=== PATIENT | female | born 1925 | race Caucasian/White ===

== ENCOUNTER 2017-04-03 11:05 | Emergency (ER) | payer MEDICARE, OTHER ==
[~2017-04-03] VITALS: Ht 157.5 cm; Wt 105.2 kg
[2017-04-03] MEDS ORDERED: ALLO15TA (11:20)
[2017-04-03] MEDS ORDERED: TYLE325T5 PO (11:20)
[2017-04-03] MEDS ORDERED: VITA50003 (11:20)
[2017-04-03] MEDS ORDERED: PROA1AER (11:20)
[2017-04-03] MEDS ORDERED: SPIR25TA2 (11:20)
[2017-04-03] MEDS ORDERED: POTA20TA PO (11:20)
[2017-04-03] MEDS ORDERED: OMEP40CA2 (11:20)
[2017-04-03] MEDS ORDERED: SIMV20TA2 (11:20)
[2017-04-03] MEDS ORDERED: TORS100T PO (11:20)
[2017-04-03] MEDS ORDERED: WARF-20 (11:20)
[2017-04-03] MEDS ORDERED: TRAM50TA2 PO (11:20)
[2017-04-03] MEDS ORDERED: ATEN50TA2 (11:20)
--- NOTE | 2017-04-03 14:07 | REP ---
BILATERAL LOWER EXTREMITY DUPLEX VEINS. HISTORY: Swelling. Right Lower Extremity: There are no filling defects in the deep venous system. The deep venous system is patent. IMPRESSION: There is no deep venous thrombosis. Left Lower Extremity: There are no filling defects in the deep venous system. The deep venous system is patent. IMPRESSION: There is no deep venous thrombosis. Signed by Patrick Russell MD 04/03/2017 02:09 P
[2017-04-03 14:35] VITALS: BP 142/80
== END 2017-04-03 14:46 | disposition home or self-care (01) ==
LOC: M ED 12:07
DX: I80.00 Phlebitis and thrombophlebitis of superficial vessels of unspecified lower extremity (principal); I89.0 Lymphedema, not elsewhere classified; I48.91 Unspecified atrial fibrillation; I50.9 Heart failure, unspecified; I10 Essential (primary) hypertension; M19.90 Unspecified osteoarthritis, unspecified site; Z87.440 Personal history of urinary (tract) infections; Z88.1 Allergy status to other antibiotic agents; Z88.5 Allergy status to narcotic agent; Z88.8 Allergy status to other drugs, medicaments and biological substances

== ENCOUNTER 2017-04-28 12:10 | Emergency (ER) | payer MEDICARE, OTHER ==
[~2017-04-28] VITALS: Ht 157.5 cm; Wt 105.7 kg
[~2017-04-28 12:10] MED LIST: ALLO15TA; ATEN50TA2; OMEP40CA2; POTA20TA PO; PROA1AER; SIMV20TA2; SPIR25TA2; TORS100T PO; TRAM50TA2 PO; TYLE325T5 PO; VITA50003; WARF-20
[2017-04-28 12:12] VITALS: BP 123/78
[2017-04-28] MEDS ORDERED: NORC1TAB4 PO (12:32)
[2017-04-28] MEDS ORDERED: DOXY100C (12:32)
--- NOTE | 2017-04-28 13:18 | REP ---
Clinical: Trauma. Fall. Comparison: 01/02/2010 . Findings: Age-related atrophy and microvascular ischemic changes are appreciated. The ventricles and sulci are symmetric. Rooney-white differentiation is maintained. There is no evidence for acute intracranial hemorrhage, mass/mass effect, pathology or infarction. No extra-axial fluid collection. Calvarium is intact. Paranasal sinuses and mastoid air cells are relatively clear with 2 cm chronic mucocele noted in the left maxillary sinus. Impression: Age related atrophy and microvascular ischemic changes. No acute intracranial hemorrhage, infarction, or mass/mass effect. Signed by Boogie Paul MD 04/28/2017 01:10 P
--- NOTE | 2017-04-28 13:49 | REP ---
Clinical: Trauma. Fall. Technique: AP angled and lateral views of the sacrum. Findings: Advanced osteopenia and degenerative changes are appreciated and limit evaluation. No obvious acute sacral or coccygeal fracture appreciated. Impression: No obvious acute fracture or or dislocation/subluxation. Signed by Boogie Paul MD 04/28/2017 01:40 P
--- NOTE | 2017-04-28 14:01 | REP ---
Clinical: Chest pain. Comparison: 12/19/2016. Findings: Marked cardiomegaly is again appreciated and may be more pronounced than prior examination. No obvious consolidation, effusion, or pneumothorax. Skeletal structures stable. Impression: Marked cardiomegaly. Signed by Boogie Paul MD 04/28/2017 01:53 P
[2017-04-28 14:09] LABS: BASO % 0.7 % (0.0-1.0); EOS % 0.7 % (0.0-3.0); LARGE UNSTAINED CELL # 0.1 K/mm3 (0.0-0.4); LARGE UNSTAINED CELL % 2.7 % (0.0-4.0); LYMPH # 0.6 K/mm3 (1.5-4.5); LYMPH % 9.6 % (24.0-44.0); MEAN CORPUSCULAR HGB CONC 31.2 g/dl (32.0-36.5); MEAN CORPUSCULAR VOLUME 102.5 fl (80.0-96.0); MONO # 0.6 K/mm3 (0.0-0.8); MONO % 12.1 % (0.0-5.0); NEUTROPHILS # 3.5 K/mm3 (1.8-7.7); NEUTROPHILS % 74.2 % (36.0-66.0); PLATELET COUNT, AUTOMATED 196 k/mm3 (150-450); RED CELL DISTRIBUTION WIDTH 16.9 % (11.5-14.5); WHITE BLOOD COUNT 4.8 K/mm3 (4.0-10.0)
[2017-04-28 14:33] LABS: ERYTHROCYTE SEDIMENTATION RATE 26 mm/hr (0-42)
[2017-04-28] MEDS ORDERED: PRED20TA PO (14:48)
== END 2017-04-28 15:11 | disposition home or self-care (01) ==
LOC: M ED 13:07
DX: S09.90XA Unspecified injury of head, initial encounter (principal); L52 Erythema nodosum; W19.XXXA Unspecified fall, initial encounter; Y92.9 Unspecified place or not applicable; Y93.9 Activity, unspecified; Y99.9 Unspecified external cause status; I10 Essential (primary) hypertension; M19.90 Unspecified osteoarthritis, unspecified site; I51.7 Cardiomegaly; Z79.899 Other long term (current) drug therapy; Z79.02 Long term (current) use of antithrombotics/antiplatelets; Z88.5 Allergy status to narcotic agent; Z88.8 Allergy status to other drugs, medicaments and biological substances; Z88.1 Allergy status to other antibiotic agents; Z88.4 Allergy status to anesthetic agent

== ENCOUNTER 2017-05-10 13:49 | Emergency (ER) | payer MEDICARE, OTHER ==
[~2017-05-10] VITALS: Ht 157.5 cm; Wt 108.0 kg
[~2017-05-10 13:49] MED LIST changes: +DOXY100C; +NORC1TAB4 PO; +PRED20TA PO
[2017-05-10 13:50] VITALS: BP 136/69
[2017-05-10] MEDS ORDERED: TRIA1OI TOP (14:01)
[2017-05-10] MEDS ORDERED: NORCO, ANEXSIA 5/325MG TABLET (HYDROcodone/ACETAMINOPHEN) PO ONE (14:30)
--- NOTE | 2017-05-10 14:34 | ED PDOC ---
Post-Departure Follow-Up PT AND FAMILY STATE THEY HAVE BEEN SEEN MULTIPLE TIMES FOR HER CURRENT SYMPTOMS SINCE JANUARY 2017. THEY STATE PAINFUL LESIONS OVER PT'S UPPER THIGHS. THEY HAVE BEEN SEEN IN THE ER AND BY PCP AND HAD A BIOPSY OF ONE OF THESE AREAS BY A BOBBIN DUMPER YESTERDAY AND PRESENT TO THE ED TODAY WITH A CHIEF COMPLAINT OF PAIN OVER THESE AREAS AND ARE FRUSTRATED THEY DO NOT KNOW WHAT THE CAUSE IS. ADVISED WE CAN DRAW LABWORK TODAY BUT THE DIAGNOSIS WILL MOST LIKELY HAVE TO COME FROM THE BOBBIN DUMPER WHEN THE PATHOLOGY REPORT RESULTS FROM THE BIOPSY. PT WAS ON A COURSE OF PREDNISONE AND WAS FEELING IMPROVED. STATES SHE IS NOW OFF OF THEM AND "IS FEELING WEAKER." STATES THE PREDNISONE INCREASED HER INR AND THEY HAVE HAD TO CHANGE THE DOSING OF HER COUMADIN AT HOME OVER THE PAST WEEK. PT DENIES ANY FEVER WITH THESE AREAS ON HER LEGS. STATES PAINFUL LESIONS THAT WILL COME AND GO, SOME HAVE RESOLVED, BUT THEN NEW ONES APPEAR IN DIFFERENT AREAS. COLLEEN WILBURN PA-C May 10, 2017 14:33
[2017-05-10 14:49] LABS: BASO % 0.3 % (0.0-1.0); EOS # 0.1 K/mm3 (0.0-0.50); EOS % 0.8 % (0.0-3.0); LARGE UNSTAINED CELL # 0.1 K/mm3 (0.0-0.4); LARGE UNSTAINED CELL % 1.2 % (0.0-4.0); LYMPH # 0.7 K/mm3 (1.5-4.5); LYMPH % 7.8 % (24.0-44.0); MEAN CORPUSCULAR HEMOGLOBIN 32.4 pg (27.0-33.0); MEAN CORPUSCULAR HGB CONC 31.8 g/dl (32.0-36.5); MONO # 0.8 K/mm3 (0.0-0.8); MONO % 10.4 % (0.0-5.0); NEUTROPHILS # 6.1 K/mm3 (1.8-7.7); NEUTROPHILS % 79.6 % (36.0-66.0); PLATELET COUNT, AUTOMATED 127 k/mm3 (150-450); WHITE BLOOD COUNT 7.7 K/mm3 (4.0-10.0)
[2017-05-10 14:50] LABS: INR 2.2
[2017-05-10 15:11] LABS: CALCIUM LEVEL 9.3 MG/DL (8.8-10.2); CREATININE FOR GFR 1.9 MG/DL (0.55-1.02); GLOMERULAR FILTRATION RATE 26.5 (>32); POTASSIUM SERUM 4.4 MEQ/L (3.5-5.1)
[2017-05-10 15:15] LABS: ERYTHROCYTE SEDIMENTATION RATE 14 mm/hr (0-42)
[2017-05-10] MEDS ORDERED: NORCOTAB PO (15:25)
[2017-05-10] MEDS ORDERED: ACET30TAB PO (16:38)
== END 2017-05-10 16:57 | disposition home or self-care (01) ==
LOC: M ED 14:08
DX: R22.43 Localized swelling, mass and lump, lower limb, bilateral (principal); M79.604 Pain in right leg; M79.605 Pain in left leg; I11.0 Hypertensive heart disease with heart failure; K57.90 Diverticulosis of intestine, part unspecified, without perforation or abscess without bleeding; Z90.79 Acquired absence of other genital organ(s); Z79.01 Long term (current) use of anticoagulants; Z79.899 Other long term (current) drug therapy; Z88.1 Allergy status to other antibiotic agents; Z88.5 Allergy status to narcotic agent; Z88.8 Allergy status to other drugs, medicaments and biological substances

== ENCOUNTER → 2017-06-02 | Outpatient (CLI) | payer MEDICARE, OTHER ==
[~2017-06-02] MED LIST changes: +ACET30TAB PO; +HYDR-3713 PO; +NORCOTAB PO; -PROA1AER; +PROAAER10; +TRIA1OI TOP; +VITA1CAP40; -VITA50003
[2017-06-02 21:38] LABS: CREATININE FOR GFR 1.71 MG/DL (0.55-1.02); GLOMERULAR FILTRATION RATE 29.9 (>32); POTASSIUM SERUM 4.4 MEQ/L (3.5-5.1)
== END ==
LOC: M SMT 12:12
PROVIDERS: ATTEND Internal Medicine
DX: N18.9 Chronic kidney disease, unspecified (principal)

== ENCOUNTER → 2017-06-20 | Outpatient (CLI) | payer MEDICARE, OTHER ==
[2017-06-20 14:32] LABS: INR 3.6
== END ==
LOC: M LAB 13:36
PROVIDERS: ATTEND Internal Medicine
DX: Z51.81 Encounter for therapeutic drug level monitoring (principal); Z79.01 Long term (current) use of anticoagulants; I48.2 Chronic atrial fibrillation

== ENCOUNTER → 2017-06-20 | Outpatient (CLI) | payer MEDICARE, OTHER ==
[2017-06-25 00:09] LABS: Chitobioside Carbohydrat (ACCA 10 units (0-90); Laminaribioside Carbohyd (ALCA 4 units (0-60); Mannobioside Carbohydrat (AMCA 20 units (0-100); Saccharomyces cerevisiae IgG A 4 units (0-50)
== END ==
LOC: M SMT 11:05
PROVIDERS: ATTEND Surgery
DX: L97.122 Non-pressure chronic ulcer of left thigh with fat layer exposed (principal); Z51.81 Encounter for therapeutic drug level monitoring; Z79.01 Long term (current) use of anticoagulants; I48.2 Chronic atrial fibrillation

== ENCOUNTER 2017-06-23 09:08 | Inpatient (IN) | payer MEDICARE, OTHER ==
[~2017-06-23] VITALS: Ht 154.9 cm; Wt 96.5 kg
[~2017-06-23 09:08] MED LIST changes: -HYDR-3713 PO
[2017-06-23] MEDS ORDERED: HYDR-3713 PO (09:36)
[2017-06-23] MEDS ORDERED: PRED20TA PO (09:36)
[2017-06-23 10:14] LABS: ADD MANUAL DIFFER YES; MEAN CORPUSCULAR HEMOGLOBIN 32.9 pg (27.0-33.0); MEAN CORPUSCULAR HGB CONC 33.1 g/dl (32.0-36.5); MEAN CORPUSCULAR VOLUME 99.2 fl (80.0-96.0); PLATELET COUNT, AUTOMATED 199 k/mm3 (150-450); RED CELL DISTRIBUTION WIDTH 17.3 % (11.5-14.5); WHITE BLOOD COUNT 16.4 K/mm3 (4.0-10.0)
[2017-06-23 10:22] LABS: INR 3.24
[2017-06-23 10:24] LABS: BANDS 20 % (< 11)
[2017-06-23 10:25] LABS: ANISOCYTOSIS 1+
[2017-06-23 10:32] LABS: OSMOLALITY SERUM 296 MOSM/KG (280-301)
--- NOTE | 2017-06-23 10:38 | REP ---
CT of the brain without IV contrast: Comparisons are 01/02/2010 and 04/28/2017. There is no hemorrhage. There is no edema, mass effect or midline shift. The ventricles and sulci are enlarged, unchanged, compatible with diffuse volume loss. There are lucencies in the subcortical white matter compatible with chronic microvascular ischemia, unchanged. There is a polyp/cyst in the left maxillary sinus, unchanged. Impression: No hemorrhage, acute infarct or mass. Chronic diffuse volume loss and chronic microvascular ischemia. There is a chronic polyp/cyst in the left maxillary sinus. Signed by Randy Lloyd MD 06/23/2017 10:29 A
[2017-06-23] MEDS ORDERED: NS 1,000 ML IV ONE ×3 (10:45→11:45)
[2017-06-23 10:48] LABS: ALKALINE PHOSPHATASE 164 U/L (45-117); ALT/SGPT 23 U/L (12-78); AST/SGOT 27 U/L (15-37); BILIRUBIN,DIRECT 1.8 MG/DL (0.0-0.2); BILIRUBIN,TOTAL 2.2 MG/DL (0.2-1.0); BLOOD UREA NITROGEN 70 MG/DL (7-18); CALCIUM LEVEL 8.7 MG/DL (8.8-10.2); CHLORIDE LEVEL 97 MEQ/L (98-107); CREATININE FOR GFR 2.77 MG/DL (0.55-1.02); GLUCOSE, FASTING 89 MG/DL (83-110); POTASSIUM SERUM 3.7 MEQ/L (3.5-5.1); SODIUM LEVEL 140 MEQ/L (136-145); TOTAL PROTEIN 5.3 GM/DL (6.4-8.2)
[2017-06-23] MEDS ORDERED: CEFEPIME HCL 2 GM in D5W MINI-BAG PLUS 50 ML IV ONE (11:00)
--- NOTE | 2017-06-23 11:05 | REP ---
Chest, single AP view, the patient semi upright: Comparison is 04/28/2017. There is marked cardiomegaly, unchanged. Lung tinoco are clear. The ismael, mediastinum, and bony thorax are unremarkable. Impression: No acute cardiopulmonary findings. Marked cardiomegaly, unchanged. Signed by Randy Lloyd MD 06/23/2017 10:57 A
[2017-06-23 11:45] VITALS: BP 88/77
[2017-06-23] MEDS ORDERED: HYDROCORTISONE 100 MG/2 ML VIAL (J1720) IV ONE (12:15)
--- NOTE | 2017-06-23 12:30 | REP ---
CT of the chest without IV contrast: Comparison is the 07/28/2006. The cardiac size is enlarged. This is unchanged. The thoracic aorta is unremarkable. There is no mediastinal hematoma. There is no pericardial effusion. There are no focal infiltrates. No pleural effusions. There are no masses. There is no mediastinal adenopathy or mass. No axillary adenopathy or mass. The study is insensitive for hilar adenopathy in the absence of IV contrast. Impression: Chronic cardiomegaly. No pericardial effusion. No pleural fluid collection. No mediastinal hematoma. There is vascular calcified atheroma in the coronary arteries. Signed by Randy Lloyd MD 06/23/2017 12:21 P
--- NOTE | 2017-06-23 12:39 | REP ---
CT of the abdomen and pelvis without IV or bowel contrast: Comparison is 2010 Cardiac size is enlarged, unchanged. There is no pericardial effusion. The unenhanced hepatic parenchyma is unremarkable. The gallbladder lumen is opacified, likely milk of calcium, but is otherwise unremarkable. The pancreas and spleen are normal size and unremarkable. There is no hydronephrosis. The adrenals and kidneys are otherwise unremarkable. The abdominal aorta is unremarkable. There is no aneurysm or periaortic hematoma. There is no bowel distension or obstruction. There is no free fluid or ascites. Pelvis: There are occasional diverticula in the descending colon and sigmoid colon without diverticulitis. There is a Moreno catheter in the bladder. The bladder is collapsed. There is a hysterectomy. The vaginal cuff and adnexa are unremarkable. There is no free fluid, adenopathy or mass. The spinous processes of the second and third lumbar vertebra appear fused. There is advanced osteoarthritis in the facets at L3-4. There is advanced degenerative disc disease at T12-L1 and L3-4. Impression: No retroperitoneal or intraperitoneal hematoma or free fluid. No bowel distension. No abdominal aortic aneurysm. No pneumoperitoneum. Chronic and degenerative findings in the lumbar spine. Bilateral hip osteoarthritis. Cardiomegaly. Signed by Randy Lloyd MD 06/23/2017 12:30 P
[2017-06-23 12:47] LABS: ALBUMIN 2.2 GM/DL (3.2-5.2); ALBUMIN/GLOBULIN RATIO 0.71 (1.00-1.93); ANION GAP 19 MEQ/L (8-16); CARBON DIOXIDE LEVEL 24 MEQ/L (21-32)
[2017-06-23] MEDS: NS 1,000 ML IV SCH ×2 (13:03→19:19)
[2017-06-23] MEDS ORDERED: MORPHINE 2 MG/ML 1ML SYRINGE IV PRN (14:30)
[2017-06-23] MEDS ORDERED: LORazepam 2 MG/ML VIAL (J2060) IV PRN (14:30)
--- NOTE | 2017-06-23 14:55 | HPEPDOC ---
General Date of Admission Jun 23, 2017 at 14:30 Chief Complaint The patient is a 89-year-old female Presented to the ER via EMS after she was found to have weakness and confusion at home. 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 fib (on Coumadin), Severe arthritis and Gout who presented to the ER via EMS because of weakness and confusion at home. Patient is unable to provide any details to her history. Her and daughter are present to provide details of her history. Other history obtained from medical record. Patient was at home sleeping in bed. When she woke up, had noted that she was confused and when he tried to help her out of bed she was very weak and couldnt stand. At that point he called EMS. EMS found patient to be hypotensive. Upon arrival to the ER patient had a blood pressure in 140s; however quickly deteriorated to SBP of 40s. She received 3 liters fluid bolus and was onto the fourth. 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 Patient was partially lucid upon arrival in the ER and had indicated to Dr. Leggett that she wanted to remain TELERADIOLOGIST. Family is at the bedside, I have discussed with them in detail her case. They have decided to keep the patient TELERADIOLOGIST. Home Medications Unable to Obtain Active Prescriptions or Reported Meds Allergies Coded Allergies: Anesthetics, Amide (Verified Allergy, Intermediate, HIVES, DYSPNEA, ) GENERAL ANESTHESIA Anesthetics, Latha (Verified Allergy, Intermediate, HIVES, DYSPNEA, ) GENERAL ANESTHESIA Aminoglycosides (Verified Allergy, Unknown, RASH, 03/02/13) Bacitracin (Verified Allergy, Unknown, RASH, 03/02/13) Neomycin (Verified Allergy, Unknown, RASH, 03/02/13) Polymyxin B (Verified Allergy, Unknown, RASH, 03/02/13) Morphine (Verified Adverse Reaction, Mild, VOMITS, 03/02/13) VOMITING Past Medical History Medical History Erythema Nodosum (01/2017; Follows with Dermatology in [place], s/p debridement) , HTN, DLP, Mitral regurgitation (refused surgery), CHF, A. 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 [employer] Review of Symptoms Other systems Unable to obtain Vital Signs - Vitals: BP 67/34, HR 94, RR 22, Sat 93%NC2L - General: Lying in bed, Unresponsive, - HEENT: NC, AT - CVS: Tachycardic - Lungs: Fair air entry bilaterally, No appreciable wheezing / rales / rhonchi - Abdomen: Soft, Non-distended, Non-tender, + Bowel sounds x 4 - Extremities: Multiple ulcers in different stages of healing; some appear infected - Neuro: unable to assess Laboratory Data Labs 24H Laboratory Tests 2 06/23/17 10:01: Neutrophils 70, Band Neutrophils 20H, Lymphocytes (Manual) 7L, Monocytes (Manual ) 3, Platelet Estimate NORMAL, Anisocytosis 1+, Prothrombin Time 34.6H, Prothromb Time International Ratio 3.24, Anion Gap 19H, Osmolality 296, Lactic Acid Level 5.0*H, Calcium Level 8.7L, Aspartate Amino Transf (AST/SGOT) 27, Alanine Aminotransferase (ALT/SGPT) 23, Alkaline Phosphatase 164H, Total Bilirubin 2.2H, Direct Bilirubin 1.8H, Ammonia 19, Total Creatine Kinase 56, Creatine Kinase MB 1.0, Creatine Kinase MB Relative Index 1.78, Troponin I 0.33H , Total Protein 5.3L, Albumin 2.2L, Albumin/Globulin Ratio 0.71L, Thyroid Stimulating Hormone (TSH) 1.370 06/23/17 11:16: Urine Appearance HAZY, Urine Color YELLOW, Urine pH 5.0, Urine Specific [place] 1.009, Urine Protein NEGATIVE, Urine Glucose (UA) NEGATIVE, Urine Ketones NEGATIVE, Urine Urobilinogen 0.2, Urine Bilirubin NEGATIVE, Urine Leukocyte Esterase 3+H, Urine Blood 1+H, Urine Nitrite NEGATIVE, Urine WBC (Auto) 59H, Urine RBC (Auto) 6H, Urine Hyaline Casts (Auto) 0, Urine Bacteria (Auto) 2+H, Urine Squamous Epithelial Cells 0, Urine Sperm (Auto) CBC/BMP Laboratory Tests 06/23/17 10:01 Red Blood Count 3.65 L, Mean Corpuscular Volume 99.2 H, Mean Corpuscular Hemoglobin 32.9, Mean Corpuscular Hemoglobin Concent 33.1, Red Cell Distribution Width 17.3 H Microbiology Microbiology 06/23/17 Blood Culture, Received Pending 06/23/17 Blood Culture, Received Pending Plan / VTE VTE Prophylaxis Ordered?: Yes Plan / Urinary Catheter Reason for insertion/continuin: Critical Pt monitoring Plan Plan Hypotension likely 2/2 shock likely 2/2 septic shock possibly 2/2 infected ulcers from erythema nodosum - Patient presented with confusion and weakness, found to be hypotensive - Received aggressive IV fluid support in ER (> 3 liters); BP did not respond - Family decided that no aggressive measures were wanted - Patient has a MOLST form with TELERADIOLOGIST - Will comply with patient and familys wishes - Will place on medical surgical floor with comfort measures Acute metabolic encephalopathy - likely 2/2 #1 Erythema Nodosum (01/2017) - Follows with Dermatology in [place] - s/p debridement HTN DLP Mitral regurgitation - Refused surgery CHF A. fib (on Coumadin) Severe arthritis Chronic back pain / Sciatica Chronic anemia Gout Disposition: - Will keep on medical surgical floor; will continue with comfort measures - Will stop home medications GIORGIO MOBLEY MD Jun 23, 2017 14:55
--- NOTE | 2017-06-23 19:56 | DS.PDOC ---
Discharge Summary General Date of Admission Jun 23, 2017 at 14:30 Date of Discharge 06/23/2017 at 748PM Discharge Summary PROCEDURES PERFORMED DURING STAY: None ADMITTING DIAGNOSES / DISCHARGE DIAGNOSES: 1. Shock - likely 2/2 septic shock 2. Acute metabolic encephalopathy COMPLICATIONS/CHIEF COMPLAINT: The patient is a 89-year-old female presented to the ER via EMS after she was found to have weakness and confusion at home. HISTORY OF PRESENT ILLNESS: Patient is a 89 year old female with a PMHx of Erythema Nodosum (2016; Follows with Dermatology in [place], s/p debridement), HTN, DLP, Mitral regurgitation (refused surgery), CHF, A. fib (on Coumadin), Severe arthritis and Gout who presented to the ER via EMS because of weakness and confusion at home. Patient is unable to provide any details to her history. Her and daughter are present to provide details of her history. Other history obtained from medical record. Patient was at home sleeping in bed. When she woke up, had noted that she was confused and when he tried to help her out of bed she was very weak and couldnt stand. At that point he called EMS. EMS found patient to be hypotensive. Upon arrival to the ER patient had a blood pressure in 140s; however quickly deteriorated to SBP of 40s. She received 3 liters fluid bolus and was onto the fourth. 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 Patient was partially lucid upon arrival in the ER and had indicated to Dr. Leggett that she wanted to remain SPORTS NUTRITIONIST. Family is at the bedside, I have discussed with them in detail her case. They have decided to keep the patient comfort measures only. HOSPITAL COURSE: Hypotension - likely 2/2 Shock - likely 2/2 Septic shock - possibly 2/2 infected ulcers from erythema nodosum; less likely meningitis Acute metabolic encephalopathy - likely 2/2 #1 Acute hypoxic respiratory failure - requiring non-rebreather mask Erythema Nodosum (01/2017) - s/p debridement HTN DLP Mitral regurgitation- Refused surgery Chronic Systolic CHF A. fib (on Coumadin) Severe arthritis Chronic back pain / Sciatica Chronic anemia Gout Morbid Obesity - complicating medical treatment Discussion with family; , daughter and several family members at bedside was completed at length. Patient's family has expressed that she did not want aggressive measures performed. Given her deteriorating condition (low blood pressure, altered mentation) she would require aggressive management with central line placement and pressor support with medications. Family advised that she would not have wanted this. Dr. Ramirez had discussed this with family and patient, and a MOLST form was provided upon arrival. Patient had expressed to Dr. Ramirez that she just wanted comfort measures and healthcare proxy was present during this discussion. I was unable to discuss this with the patient because she was unable to converse at the time of my arrival. I have updated the MOLST form to reflect the patient's decision and the healthcare proxy has signed the updated MOLST form to update her status to comfort measures only. Family has been advised that we will no longer be taking vital signs and blood work, as well as stopping non-essential medications, only those that are used for comfort will be continued. I was notified that the patient has at 7:04PM. I have completed the certificate. ALLERGIES: Please see below. LABORATORY DATA: Please see below. DISPOSITION: Body to be transferred to [facility] [place]. DISCHARGE CONDITION: TIME SPENT ON DISCHARGE: Greater than 25 minutes. Vital Signs/I&Os Vital Signs Date Time Temp Pulse Resp B/P (MAP) Pulse Ox O2 Delivery O2 Flow Rate FiO2 06/23/17 11:45 88/77 (81) 06/23/17 11:38 94 93 06/23/17 09:47 18 Nasal Cannula 2.0 Laboratory Data Labs 24H Laboratory Tests 2 06/23/17 10:01: Neutrophils 70, Band Neutrophils 20H, Lymphocytes (Manual) 7L, Monocytes (Manual ) 3, Platelet Estimate NORMAL, Anisocytosis 1+, Prothrombin Time 34.6H, Prothromb Time International Ratio 3.24, Anion Gap 19H, Osmolality 296, Lactic Acid Level 5.0*H, Calcium Level 8.7L, Aspartate Amino Transf (AST/SGOT) 27, Alanine Aminotransferase (ALT/SGPT) 23, Alkaline Phosphatase 164H, Total Bilirubin 2.2H, Direct Bilirubin 1.8H, Ammonia 19, Total Creatine Kinase 56, Creatine Kinase MB 1.0, Creatine Kinase MB Relative Index 1.78, Troponin I 0.33H , Total Protein 5.3L, Albumin 2.2L, Albumin/Globulin Ratio 0.71L, Thyroid Stimulating Hormone (TSH) 1.370 06/23/17 11:16: Urine Appearance HAZY, Urine Color YELLOW, Urine pH 5.0, Urine Specific [place] 1.009, Urine Protein NEGATIVE, Urine Glucose (UA) NEGATIVE, Urine Ketones NEGATIVE, Urine Urobilinogen 0.2, Urine Bilirubin NEGATIVE, Urine Leukocyte Esterase 3+H, Urine Blood 1+H, Urine Nitrite NEGATIVE, Urine WBC (Auto) 59H, Urine RBC (Auto) 6H, Urine Hyaline Casts (Auto) 0, Urine Bacteria (Auto) 2+H, Urine Squamous Epithelial Cells 0, Urine Sperm (Auto) CBC/BMP Laboratory Tests 06/23/17 10:01 Red Blood Count 3.65 L, Mean Corpuscular Volume 99.2 H, Mean Corpuscular Hemoglobin 32.9, Mean Corpuscular Hemoglobin Concent 33.1, Red Cell Distribution Width 17.3 H Microbiology Microbiology 06/23/17 Blood Culture, Received Pending 06/23/17 Blood Culture, Received Pending Discharge Medications Unable to Obtain Active Prescriptions or Reported Meds Allergies Coded Allergies: Anesthetics, Amide (Verified Allergy, Intermediate, HIVES, DYSPNEA, ) GENERAL ANESTHESIA Anesthetics, Latha (Verified Allergy, Intermediate, HIVES, DYSPNEA, ) GENERAL ANESTHESIA Aminoglycosides (Verified Allergy, Unknown, RASH, 03/02/13) Bacitracin (Verified Allergy, Unknown, RASH, 03/02/13) Neomycin (Verified Allergy, Unknown, RASH, 03/02/13) Polymyxin B (Verified Allergy, Unknown, RASH, 03/02/13) Morphine (Verified Adverse Reaction, Mild, VOMITS, 03/02/13) VOMITING GIORGIO MOBLEY MD Jun 23, 2017 19:56
--- NOTE | 2017-06-24 08:55 | ECGEPIP ---
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
== END 2017-06-23 19:04 | disposition expired | DRG 871 ==
LOC: M ED 09:08 → M ED INP 14:30 → M MSPAV 15:53
PROVIDERS: ADMIT Internal Medicine; ATTEND Internal Medicine
DX: A41.9 Sepsis, unspecified organism (principal); R65.21 Severe sepsis with septic shock; G93.41 Metabolic encephalopathy; J96.01 Acute respiratory failure with hypoxia; E87.2 Acidosis; N39.0 Urinary tract infection, site not specified; Z68.41 Body mass index [BMI] 40.0-44.9, adult; I50.22 Chronic systolic (congestive) heart failure; L52 Erythema nodosum; E66.01 Morbid (severe) obesity due to excess calories; I48.91 Unspecified atrial fibrillation; Z79.01 Long term (current) use of anticoagulants; I34.0 Nonrheumatic mitral (valve) insufficiency; M10.9 Gout, unspecified; M19.90 Unspecified osteoarthritis, unspecified site; Z51.5 Encounter for palliative care; D64.9 Anemia, unspecified; Z88.5 Allergy status to narcotic agent; Z88.8 Allergy status to other drugs, medicaments and biological substances; Z88.4 Allergy status to anesthetic agent